=== PATIENT | male | born 2005 | race Caucasian/White ===

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

== ENCOUNTER 2023-05-28 10:39 | Emergency (ER) | payer OTHER ==
[~2023-05-28] VITALS: Ht 162.5 cm; Wt 88.9 kg
[2023-05-28] MEDS ORDERED: IBUPROFEN 800 MG TAB PO ONE (11:05)
[2023-05-28] MEDS ORDERED: CLINDAMYCIN HC300 MG PO (11:05)
[2023-05-28] MEDS ORDERED: MELOXICAM15 MG PO (11:05)
[2023-05-28] MEDS ORDERED: CLINDAMYCIN HCL 300 MG CAPSULE PO ONE (11:05)
[2023-05-29] MEDS ORDERED: PREDNISONE50 MG PO (00:40)
== END 2023-05-28 11:15 | disposition home or self-care (01) ==
LOC: ED 10:39
DX: K02.9 Dental caries, unspecified (principal); K04.7 Periapical abscess without sinus; J45.909 Unspecified asthma, uncomplicated; Z88.6 Allergy status to analgesic agent

== ENCOUNTER 2023-05-29 00:20 | Emergency (ER) | payer OTHER ==
[~2023-05-29] VITALS: Ht 162.5 cm; Wt 88.9 kg
[~2023-05-29 00:20] MED LIST changes: +CLINDAMYCIN HC300 MG PO; +MELOXICAM15 MG PO
[2023-05-29] MEDS ORDERED: Ketorolac Tromethamine 60 MG/2 ML VIAL IM ONE (00:40)
[2023-05-29] MEDS ORDERED: Dexamethasone Sodium Phospha 20 MG/5 ML VIAL IM ONE (00:40)
[2023-05-29] MEDS ORDERED: PREDNISONE50 MG PO (00:40)
== END 2023-05-29 01:01 | disposition home or self-care (01) ==
LOC: ED 00:20
DX: K04.7 Periapical abscess without sinus (principal); K02.9 Dental caries, unspecified; J45.909 Unspecified asthma, uncomplicated; Z88.6 Allergy status to analgesic agent; F17.200 Nicotine dependence, unspecified, uncomplicated